=== PATIENT | male | born 1965 | race Caucasian/White ===

== ENCOUNTER 2021-12-20 17:00 | Emergency (ER) | payer OTHER ==
--- NOTE | 2021-12-20 17:16 | Emergency Department Report ---
Blank Doc - Documentation Documentation: 56-year-old male that presents originally with right facial numbness sensation and right-sided upper and lower extremity numbness but has that stated symptoms now or bilateral lower and upper extremities. Patient stated last known time was about 1 PM. Otherwise denies any other symptoms or complaints. 1- This is a initial triage assessment/medical screening only. Full assessment and work-up will be completed once the patient is in proper hospital gown, ED bed and in a private room setting. This initial assessment/diagnostic orders/clinical plan/ treatment(s) is/are subject to change based on pt's health status, clinical progression and re-assessment by fellow clinical providers in the ED. Further treatment and workup at subsequent clinical providers discretion. Patient/guardians urged not to elope from ED as their condition may be serious if not clinically assessed and managed. 2-stroke protocol initiated The patient was evaluated in the emergency department for symptoms described in the history of present illness. He/she was evaluated in the context of the global COVID-19 pandemic, which necessitated consideration that the patient might be at risk for infection with the virus that causes COVID-19. Institutional protocols and algorithms that pertain to the evaluation of patients at risk for COVID-19 are in a state of rapid change based on information released by regulatory bodies including the CDC and federal and state organizations. These policies and algorithms were followed during the patient's care in the emergency department. Please note that these policies, procedures and recommendations changed on a rapid basis.
[2021-12-20 18:03] LABS: Basophils % (Auto) 0.1 % (0.0-1.8); Eosinophils # (Auto) 0.1 K/mm3 (0.0-0.4); Eosinophils % (Auto) 0.8 % (0.0-4.3); Hematocrit 43.2 % (35.5-45.6); Hemoglobin 14.6 gm/dl (11.8-15.2); Lymphocytes # (Auto) 0.8 K/mm3 (1.2-5.4); Lymphocytes % (Auto) 9.2 % (13.4-35.0); Mean Corpuscular HGB Conc 34 % (32-34); Mean Corpuscular Volume 84 fl (84-94); Monocytes # (Auto) 0.3 K/mm3 (0.0-0.8); Platelet Count 219 K/mm3 (140-440); Red Blood Count 5.12 M/mm3 (3.65-5.03); Red Cell Distribution Width 13.3 % (13.2-15.2)
[2021-12-20] MEDS ORDERED: ONDANSETRON 4 MG/2 ML INJ IV ONE (18:11)
[2021-12-20] MEDS ORDERED: MORPHINE 4 MG/1 ML INJ IV ONE (18:11)
[2021-12-20 18:12] LABS: INR 0.99 (0.87-1.13)
[2021-12-20 18:13] LABS: Partial Thromboplastin Time 29.6 Sec. (24.2-36.6); Thrombin Time 17.4 Sec. (15.1-19.6)
[2021-12-20 18:22] LABS: Creatine Kinase MB 1.2 ng/mL (0.0-4.0)
[2021-12-20 18:27] LABS: Alanine Aminotransferase 28 units/L (7-56); Albumin 4.9 g/dL (3.9-5); Blood Urea Nitrogen 15 mg/dL (9-20); Calcium 9.3 mg/dL (8.4-10.2); Hemolysis Index 8
[2021-12-20 19:03] LABS: BUN/Creatinine Ratio 21
[2021-12-20 19:09] LABS: Hyaline Casts,Urine 1 /LPF; Mucus,Urine 2+ /HPF; WBC,Urine < 1.0 /HPF (0.0-6.0)
[2021-12-20 19:11] LABS: Bilirubin,Urine Negative (Negative); Color,Urine Straw (Yellow)
[2021-12-20 19:12] LABS: Blood,Urine Negative (Negative); Urobilinogen,Urine < 2.0 mg/dL (<2.0)
--- NOTE | 2021-12-20 19:35 | Cat Scan Report ---
CT head/brain wo con INDICATION / CLINICAL INFORMATION: 56 years Male; Stroke symptoms. TECHNIQUE: Routine CT head without contrast. All CT scans at this location are performed using CT dos e reduction for ALARA by means of automated exposure control. COMPARISON: None. FINDINGS: BRAIN / INTRACRANIAL CONTENTS: No acute hemorrhage, mass effect, midline shift, hydrocephalus, or acu te, large territorial infarct. No signs of significant atrophy or chronic infarct. No significant whi te matter abnormality seen. CRANIOCERVICAL JUNCTION: No significant abnormality. ORBITS: No significant abnormality of visualized orbits. SINUSES / MASTOIDS: Mild to moderate mucosal thickening in the ethmoids. ADDITIONAL FINDINGS: None. IMPRESSION: 1. No focal mass, hemorrhage, hydrocephalus, or acute, large territorial infarct. Signer Name: Fer Langford MD, III Signed: 12/20/2021 7:31 PM Workstation Name: [id number]
[2021-12-20] MEDS ORDERED: PROCHLORPERAZINE EDISYLATE 10 MG/2 ML VIAL IV ONE (21:20)
--- NOTE | 2021-12-20 21:26 | Emergency Department Report ---
ED General Adult HPI - General Chief complaint: Weakness Stated complaint: FACE NUMBNESS Time Seen by Provider: 12/20/21 17:09 Source: patient Mode of arrival: Ambulatory Limitations: No Limitations - History of Present Illness Initial comments: Patient is a 56-year-old male presenting to ED with complaint of headache, numbness to his entire face and diffuse body aches with generalized weakness. Symptoms began this morning. He denies any past medical history. No fever or chills. Severity scale (0 -10): 8 - Related Data Previous Rx's Medication Instructions Recorded Last Taken Type Famotidine [Pepcid] 40 mg PO QHS #30 tablet 10/29/13 Unknown Rx Ondansetron [Zofran] 4 mg PO Q8HR PRN #15 tablet 10/29/13 Unknown Rx Prochlorperazine [Compazine] 10 mg PO Q8HR #14 tablet 12/20/21 Unknown Rx Allergies Allergy/AdvReac Type Severity Reaction Status Date / Time No Known Allergies Allergy Unverified 10/29/13 10:55 ED Review of Systems ROS: Stated complaint: FACE NUMBNESS Other details as noted in HPI Comment: All other systems reviewed and negative Constitutional: malaise, weakness ENT: denies: ear pain, throat pain Respiratory: denies: cough, shortness of breath, wheezing Cardiovascular: denies: chest pain, palpitations Gastrointestinal: denies: abdominal pain, nausea, diarrhea Musculoskeletal: myalgia Skin: as per HPI Neurological: headache Psychiatric: denies: anxiety, depression Hematological/Lymphatic: denies: easy bleeding, easy bruising ED Past Medical Hx - Past Medical History Additional medical history: high cholesterol - Social History Smoking Status: Never Smoker Substance Use Type: None - Medications Home Medications: Home Medications Medication Instructions Recorded Confirmed Last Taken Type Famotidine [Pepcid] 40 mg PO QHS #30 tablet 10/29/13 Unknown Rx Ondansetron [Zofran] 4 mg PO Q8HR PRN #15 tablet 10/29/13 Unknown Rx Prochlorperazine [Compazine] 10 mg PO Q8HR #14 tablet 12/20/21 Unknown Rx ED Physical Exam - General Limitations: No Limitations General appearance: alert, in no apparent distress - Head Head exam: Present: atraumatic, normocephalic - Eye Eye exam: Present: normal appearance, PERRL, EOMI - Respiratory Respiratory exam: Present: normal lung sounds bilaterally. Absent: respiratory distress - Cardiovascular Cardiovascular Exam: Present: regular rate, normal rhythm, normal heart sounds - GI/Abdominal GI/Abdominal exam: Present: soft. Absent: distended, tenderness - Rectal Rectal exam: Present: deferred - Neurological Exam Neurological exam: Present: alert, oriented X3 - Psychiatric Psychiatric exam: Present: normal affect, normal mood - Skin Skin exam: Present: warm, dry, intact, normal color ED Course Vital Signs 12/20/21 12/20/21 17:03 18:28 Temperature 98.2 F 98.4 F Pulse Rate 68 64 Respiratory 18 8 L Rate Blood Pressure 146/86 142/86 [Left] O2 Sat by Pulse 96 100 Oximetry ED Medical Decision Making - Lab Data Result diagrams: 12/20/21 17:26 12/20/21 17:26 - Medical Decision Making Patient given IV morphine for pain. Symptoms not improved. He was given Tylenol in addition. CT head unremarkable. CBC, CMP, troponin are unremar kable. On reassessment patient still reports mild headache. He was given IV Compazine. I discussed results with him. Likely migraine. Will discharge with Rx for Compazine to take as needed. Instructed to follow-up with PCP at earliest convenience. Critical care attestation.: If time is entered above; I have spent that time in minutes in the direct care of this critically ill patient, excluding procedure time. ED Disposition Clinical Impression: Migraine Disposition: 01 HOME / SELF CARE / HOMELESS Is pt being admited?: No Condition: Stable Instructions: Migraine Headache Referrals: PRIMARY CARE, [Primary Care Provider] - 3-5 Days
[2021-12-20 21:54] VITALS: BP 134/84
--- NOTE | 2021-12-21 10:20 | Electrocardiograph Report ---
[facility] Test Date: 2021-12-20 Test Time: 17:17:33 Pat Name: RITU LUCERO Department: Room: Gender: M Combination Welder: NEETU : 1965 Requested By: MISTY NOE Order Number: [id number] Reading MD: Reddy Amin Measurements Intervals [place] Rate: 66 P: 32 [place]: 151 QRS: 48 QRSD: 90 T: 44 QT: 390 QTc: 407 Interpretive Statements Sinus rhythm No previous ECG available for comparison Electronically Signed On 12-21-2021 10:20:40 EDT by Reddy Amin
== END 2021-12-20 22:01 | disposition home or self-care (01) ==
LOC: ED 17:00
DX: G43.909 Migraine, unspecified, not intractable, without status migrainosus (principal); E78.00 Pure hypercholesterolemia, unspecified; R79.1 Abnormal coagulation profile; Z79.899 Other long term (current) drug therapy
CPT/HCPCS: 36415; 70450; 80053; 81001; 82550; 82553; 82962; 84484; 85025; 85610; 85670; 85730; 93005; 96374; 96375; 99284; J0780; J2270; J2405; 80320; G0480